=== PATIENT | female | born 1990 | race Caucasian/White ===

== ENCOUNTER 2016-05-31 09:59 | Emergency (ER) | payer OTHER ==
[2016-05-31 10:21] VITALS: BP 165/114; PULSE 111; RESP 18; TEMP 99; O2SAT 96
--- NOTE | 2016-05-31 11:25 | UCPHY ---
H & P Time Seen by Provider: 05/31/16 10:07 Patient Type: Established HPI/ROS: 26-year-old female presents complaining of cough, fevers chills cold symptoms. Patient is concerned because she has a history of Crohn's and is on immunosuppressants Review of systems As per HPI General positive fever positive chills no weakness HEENT no eye pain no eye discharge. No eye redness, no sore throat Respiratory positive cough no shortness of breath Cardiac no chest pain, no peripheral edema GI no abdominal pain, no diarrhea, no constipation, no nausea, no vomiting no flank pain, no hematuria, no dysuria Musculoskeletal no myalgias, no joint pain Heme no easy bruising, no easy bleeding Endo no polyuria, no polydipsia Skin no rashes, no pruritus Neuro no syncope, no dizziness, no headaches Psych is no suicidal ideation, no homicidal ideation Past Medical/Surgical History: Crohn's Social History: No alcohol, no drug use Smoking Status: Never smoked Physical Exam: 26-year-old female alert and oriented nontoxic appearance afebrile Alert and oriented nontoxic appearance, no acute distress afebrile Atraumatic normocephalic Extraocular muscles intact, anicteric Nares mild yellowish discharge Oropharynx mild erythema no tonsillar swelling no exudate no uvular deviation, tolerating own secretions Neck supple no lymphadenopathy Lungs clear to auscultation bilaterally Heart regular rate and rhythm Abdomen normoactive bowel sounds soft nontender Extremities no cyanosis clubbing or edema Skin no rash Constitutional: Initial Vital Signs Temperature (C) 37.2 C 05/31/16 10:17 Heart Rate 111 H 05/31/16 10:17 Respiratory Rate 18 05/31/16 10:17 Blood Pressure 165/114 H 05/31/16 10:17 O2 Sat (%) 96 05/31/16 10:17 O2 Delivery Mode Room Air Allergies/Adverse Reactions: ceftriaxone sodium [From Rocephin] Allergy (Severe, Verified 05/31/16 10:17) Hives cefaclor [From Ceclor] Allergy (Intermediate, Verified 05/31/16 10:17) Hives clindamycin Allergy (Intermediate, Verified 05/31/16 10:17) ears codeine Allergy (Intermediate, Verified 05/31/16 10:17) abd cramping-severe latex Allergy (Verified 05/31/16 10:17) Home Medications: Medication Instructions Recorded Adalimumab [Humira] 10/29/14 B 12 10/29/14 Cetirizine [ZyrTEC 10 mg (RX)] 10/29/14 Cholecalciferol Vit D3 [Vitamin D3 10/29/14 (OTC)] Dicyclomine [Bentyl] 20 mg PO BID 10/29/14 Multivitamins [Multivitamin (OTC)] 10/29/14 Omeprazole [Prilosec 20 mg] 10/29/14 Zofran Odt 4 mg (RX) 10/29/14 azaTHIOprine [Imuran] 50 mg PO DAILY 10/29/14 oxyCODONE/APAP 5/325 [Percocet 1 - 2 tab PO Q4-6PRN PRN #20 tab 03/29/15 5/325 (*)] prednisoLONE ACET 1% [Pred Forte 2 drops OP Q2 #1 opht.btl 03/29/15 1%] AZITHROMYCIN [Z-PACK] 250 mg PO DAILY #6 tab 05/31/16 AZITHROMYCIN [Z-PACK] 250 mg PO DAILY #6 tab 05/31/16 Fluconazole [Diflucan (*)] 150 mg PO ONCE #0 tab 05/31/16 Medical Decision Making ED Course/Re-evaluation: Patient seen and evaluated for cough fevers chills myalgias Chest x-ray negative, consistent with bronchitis Influenza negative Differential diagnosis considered Bronchitis, pneumonia, pharyngitis, viral syndrome, influenza Impression Bronchitis Plan [facility] Follow-up PCP - Data Points Laboratory Results: 05/31/16 10:05 Influenza Typ A,B (DFA) NEGATIVE FOR FLU (NEGATIVE) Departure - Departure Disposition: Home, Routine, Self-Care Clinical Impression: Bronchitis Condition: Good Instructions: Acute Bronchitis (ED) Referrals: NONE *PRIMARY CARE P,. [Primary Care Provider] - As per Instructions Stand Alone Forms: Work Excuse Prescriptions: AZITHROMYCIN [Z-PACK] 250 mg PO DAILY #6 tab AZITHROMYCIN [Z-PACK] 250 mg PO DAILY #6 tab Fluconazole [Diflucan (*)] 150 mg PO ONCE #0 tab - PQRS PQRS Measurement: na
== END 2016-05-31 11:56 | disposition home or self-care (01) ==
LOC: CED 09:59
DX: J40 Bronchitis, not specified as acute or chronic (principal)
CPT/HCPCS: 71020-PO; 87400-PO; 99214-PO; G0463-PO